=== PATIENT | female | born 1995 | race African-American/Black ===

== ENCOUNTER 2019-07-26 05:54 | Emergency (ER) | payer SELFPAY ==
[2019-07-26 06:46] LABS: Hemoglobin 10.4 g/dL (12.0-16.0); Mean Corpuscular HGB CONC 32.1 g/dL (32.0-36.0); Mean Corpuscular Hemoglobin 22.1 pg (27.0-31.0); Mean Corpuscular Volume 68.8 fL (78.0-98.0); Mean Platelet Volume 10.3 fL (7.4-10.4); Platelet Count 202 thou/uL (130-400); RBC Distribution Width 14.8 % (11.5-14.5); Red Blood Cell (RBC) Count 4.71 mill/uL (4.20-5.40); White Blood Cell (WBC) Count 9.2 thou/uL (4.8-10.8)
[2019-07-26] MEDS ORDERED: Acetaminophen 500 MG TAB ONE (06:46)
[2019-07-26] MEDS ORDERED: Ondansetron ODT 4 MG TAB ONE (06:46)
[2019-07-26 06:55] LABS: Bilirubin Negative (Negative); Blood, Urine Negative (Negative); Clarity Clear (Clear); Glucose, Urine (Dipstick) Normal (Negative); Leukocyte Negative Leu/uL (Negative); Nitrite Negative (Negative); Protein, Urine (Dipstick) Negative (Neg-Trace); Urobilinogen Normal mg/dL (Less than 2)
[2019-07-26 07:20] LABS: #Basophils 0.1 thou/uL (0.0-0.2); #Eosinphils 0.1 thou/uL (0.0-0.7); #Lymphocytes 2.5 thou/uL (1.20-3.40); #Monocytes 0.6 thou/uL (0.11-0.59); #Neutrophils 5.9 thou/uL (1.40-6.50); %Basophils 1.2 % (0.0-1.0); %Eosinophils 1.3 % (0.0-10.0); %Lymphocytes 26.7 % (21.0-51.0); %Monocytes 6.9 % (0.0-10.0); %Neutrophils 63.9 % (42.0-75.0); Anisocytosis SLIGHT = 6-15 cells (100X) (0-5/hpf); MDiff Complete? YES; Microcytosis SLIGHT = 6-15 cells (100X) (0-5/hpf); Ovalocytes SLIGHT = 2-5 cells (100X) (0-1/hpf); Poikilocytosis SLIGHT = 6-15 cells (100X) (0-5/hpf)
--- NOTE | 2019-07-26 09:03 | ULT ---
PELVIC ULTRASOUND: COMPARISON: None. HISTORY: Pelvic pain in a female. TECHNIQUE: Multiplanar, whitehead scale, and color Doppler images were obtained in a transabdominal and transvaginal pelvic ultrasound. Spectral analysis with Doppler waveforms was performed. FINDINGS: Within the uterus, there is a hypoechoic region within the endometrium measuring approximately 2.1 x 2.6 cm in size. There are internal areas of increased echogenicity. This does not have the appearan ce of a normal gestational sac and is indeterminate. The echogenic structures do not have the appear ance of normal parts. A small amount of free fluid is seen in the pelvis. The right ovary is normal in size and appearance and demonstrates normal internal flow. There is a mass-like region in the left ovary measuring 5.4 cm in greatest dimension. No obvious ectopic gestational sac is seen. IMPRESSION: 1. No evidence of intrauterine or ectopic gestational sac. 2. There is a complex region within the uterus. This could represent demise with partial reso rption of the gestational sac and fetus. Alternatively, this could represent an atypical tumor. Giv en the extremely high HCG level, a choriocarcinoma could not be entirely excluded, although the appea kenzie of this on ultrasound would be atypical for choriocarcinoma. 3. Mass-like region in the left ovary. This could represent a hemorrhagic cyst or a mass in the lef t ovary. POS: CET
[2019-07-26] MEDS ORDERED: Ketorolac Tromethamine 30 MG/ML VIAL ONE (09:24)
[2019-07-26] MEDS ORDERED: traMADol HCl 50 MG TAB ONE (10:46)
--- NOTE | 2019-07-27 09:14 | CON ---
DATE OF CONSULTATION: 07/26/2019 CHIEF COMPLAINT: Cramping suprapubic pain. HISTORY OF PRESENT ILLNESS: The patient is a 24-year-old G3, P1 female, presenting with onset of suprapubic pain that began this morning after her shift. 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 She denies any vaginal bleeding. She reports that her pain is severe and rates it a 10/10 and it is suprapubic in nature. The patient reports that she was diagnosed with about 2 weeks ago and confirmed at [facility] [place]. Her evaluation in the ER included an ultrasound report and quantitative hCG at 2584. Ultrasound demonstrating no clear intrauterine , but what may appear to be a partial resorption of the gestational sac in fundus, which could represent a demise. Urine showed no evidence of urinary tract infection, and white count was normal. Upon my evaluation with the patient, patient confirmed the reported history. She does report that this was a surprise that she lives alone with her child and works at nights and also confirmed that she has an appointment tomorrow with her primary OB, Dr. Rivera at [facility] [place], who delivered her first child. PAST MEDICAL HISTORY: Negative. PAST SURGICAL HISTORY: Cholecystectomy. SOCIAL HISTORY: Drinks very rarely. Denies drug or tobacco use. ALLERGIES: NO KNOWN DRUG ALLERGIES. MEDICATIONS: None. PHYSICAL EXAMINATION: VITAL SIGNS: Blood pressure 112/70, pulse of 80, respiratory rate of 18, and temperature 98.2. Pain reported at 8/10 and O2 sats of 99%. GENERAL: She appears to be in no acute distress. She is alert, oriented, cooperative, and pleasant to interact with. She reports or exhibits some pain when she is moving. HEENT: Head is normocephalic and atraumatic. LUNGS: Clear to auscultation bilaterally. HEART: Has a regular rate and rhythm. ABDOMEN: Gravid. She has some mild tenderness to palpation throughout her abdomen. : She has more pointed tenderness suprapubically in midline, not really present in her lower adnexal regions. Vulva is without masses, lesions, or erythema. Vagina is moist. Cervix was identified and visibly closed with no blood or products of conception visible. EXTREMITIES: Nontender and nonedematous. IMAGING DATA: Again, ultrasound demonstrating a hypoechoic region within the endometrium of 2.1 x 2.6 cm in size. Did not have the appearance of a normal gestational sac, however, in impression may be evidence of a recent demise with partial resorption. Also present on ultrasound is a 5.4 cm mass in the left ovary. ASSESSMENT AND PLAN: The patient is a 24-year-old G3, P1 female with a likely abnormal , which may represent a recent demise. However, the patient has no clear evidence of this as her quants were 2500 with only a single value. We did discuss that this likely is not a normal and likely may end in miscarriage. However, given the fact that the confirmation of our suspicions would best be confirmed with serial hCG in 2 days, we are recommending discharge home with followup with her primary OB tomorrow, Dr. Rivera, who can make further management decisions. The patient, however, did not appear to be in significant pain, reported such. Ultram was given to the patient, #10 to take as needed for pain control at home as this may be evidence of a threatened miscarriage. I do not believe that the patient has an ectopic as the patient had [id number] tenderness in the adnexa, but all present suprapubically. The patient has no evidence of urinary tract infection. The patient has been given spontaneous miscarriage precautions and counseled should she start experiencing significant heavy bleeding or that her pain medication is not sufficiently covering her pain, during that time that she can re-present either with us or at [facility], where her primary OB would be more likely to be able to attend to her. The patient did confirm that she has someone coming to pick her up. The patient was counseled not to drive while taking the narcotics that she is being provided. Job ID: [id number]
== END 2019-07-26 11:51 | disposition home or self-care (01) ==
LOC: ERS 05:54
DX: O20.0 Threatened abortion (principal); O26.891 Other specified pregnancy related conditions, first trimester; R10.30 Lower abdominal pain, unspecified; Z3A.01 Less than 8 weeks gestation of pregnancy
CPT/HCPCS: 36415; 76856; 81003; 84702; 85025; 96374; J1885; Q0162

== ENCOUNTER 2019-07-30 12:57 | Emergency (ER) | payer SELFPAY ==
[2019-07-30 14:17] LABS: #Basophils 0.1 thou/uL (0.0-0.2); #Eosinphils 0.1 thou/uL (0.0-0.7); #Lymphocytes 1.5 thou/uL (1.20-3.40); #Monocytes 0.7 thou/uL (0.11-0.59); #Neutrophils 4.2 thou/uL (1.40-6.50); %Basophils 1.2 % (0.0-1.0); %Eosinophils 1.6 % (0.0-10.0); %Lymphocytes 22.1 % (21.0-51.0); %Monocytes 10.3 % (0.0-10.0); %Neutrophils 64.8 % (42.0-75.0); Hemoglobin 7.9 g/dL (12.0-16.0); Mean Corpuscular HGB CONC 34.5 g/dL (32.0-36.0); Mean Corpuscular Hemoglobin 23.6 pg (27.0-31.0); Mean Corpuscular Volume 68.4 fL (78.0-98.0); Mean Platelet Volume 10.2 fL (7.4-10.4); Platelet Count 244 thou/uL (130-400); RBC Distribution Width 14.6 % (11.5-14.5); Red Blood Cell (RBC) Count 3.33 mill/uL (4.20-5.40); White Blood Cell (WBC) Count 6.5 thou/uL (4.8-10.8)
[2019-07-30 14:38] LABS: Anion Gap 13 mmol/L (10-20); BUN (Urea Nitrogen) 6 mg/dL (7.0-18.7); Calc. Creatinine Clearance 0 mL/min (70-130); Calcium 9.1 mg/dL (7.8-10.44); Carbon Dioxide 24 mmol/L (22-29); Chloride 102 mmol/L (98-107); Estimated GFR-MDRD Greater than 90; Glucose 80 mg/dL (70-105); Potassium 3.1 mmol/L (3.5-5.1); Sodium 136 mmol/L (136-145)
--- NOTE | 2019-07-30 15:00 | ULT ---
EXAM: Pelvic ultrasound HISTORY: Vaginal bleeding with COMPARISON: None TECHNIQUE: Multiple grayscale and color Doppler images were obtained in a transabdominal and transvag inal pelvic ultrasound. Spectral analysis of the Doppler waveforms of the ovaries were performed. FINDINGS: CERVIX: No evidence of nabothian cysts. UTERUS: No intrauterine is seen. There is a focal area of heterogeneous thickening of the e ndometrium near the fundus. This could represent retained products of conception. A small amount of free fluid is seen in the pelvis. RIGHT OVARY: Normal flow without focal mass. LEFT OVARY: Normal flow without focal mass. The left ovary appears enlarged compared to the right. IMPRESSION: 1. No intrauterine or ectopic identified 2. Area of thickening within the endometrial stripe near the fundus could represent retained products of conception or blood within the endometrial canal. 3. Large left ovary.
[2019-07-30] MEDS ORDERED: Misoprostol 200 MCG TAB VAG SCH (18:15)
--- NOTE | 2019-07-30 22:42 | CON ---
DATE OF CONSULTATION: 07/30/2019 CHIEF COMPLAINT: Vaginal bleeding. HISTORY OF PRESENT ILLNESS: The patient is a 24-year-old, G2, P1 female with several days history of vaginal bleeding that she reports has been as frequently as changing a blue hernando pad every 2 hours with a saturated spot 6-8 inches in diameter. She was seen here in the emergency room on 07/26/2019 with pelvic pain, was diagnosed with likely abnormal and threatened . She followed up with her primary OB the following days for further evaluation, but has returned today. The patient in her evaluation was noted to have a drop in her hemoglobin from 10.4 to 7.9, a rise in her quant HCG from 2500 to 7500 and ultrasound findings consistent with what was thought to be retained products of conception in the fundus. The patient reports fatigue and extreme tiredness, has been in bed for most the last several days. She reports that last night, she had increased cramping until she felt like some tissue had passed, after which cramping had improved and her bleeding had improved for some time, but then again began to be increased. This morning, she came for evaluation. She reports that since arrival over the last several hours, she has not had to change her pad. She does report fatigue and tiredness. She reports abdominal pain, but this has improved since our last encounter. Denies chest pain or shortness of breath. Denies fever. PAST MEDICAL HISTORY: Negative. PAST SURGICAL HISTORY: She has had a cholecystectomy. PSYCHIATRIC HISTORY: Depression. SOCIAL HISTORY: Denies drugs or tobacco use and drinks alcohol on rare occasion. ALLERGIES: NO KNOWN DRUG ALLERGIES. MEDICATIONS: Prescribed a few Ultram for cramping in her last ER presentation. PHYSICAL EXAMINATION: VITAL SIGNS: Blood pressure 128/74, pulse of 84, respiratory rate of 16, temperature 98.2, saturating 100% on room air. GENERAL: She appears to be in no acute distress. She is alert, oriented, cooperative, and pleasant to interact with. HEAD: Normocephalic, atraumatic. LUNGS: Clear to auscultation bilaterally. HEART: Has regular rate and rhythm. ABDOMEN: Gravid and soft. She has some mild tenderness to palpation, but again much improved from her previous visit. : Vulva is without masses, lesions, or erythema. She has no bleeding visible on the check beneath her. She has lightly stained perineum with some bleeding on speculum exam. She has no blood collecting in the vaginal vault and no active bleeding from the cervical os. On bimanual exam, uterus feels to be just slightly enlarged, but is firm and again bimanual exam and pressure on the uterus does not express any bleeding from the uterus itself or stimulate any bleeding. IMAGING DATA: Pelvic ultrasound done earlier today. A focus of area of thickening of the endometrium near the fundus that could represent retained products of conception. LABORATORY STUDIES: Current CBC; white count of 6.5, hemoglobin 7.9, hematocrit 22.7, and platelets of 244,000. Blood type is A positive with a negative antibody screen. Sodium 136, potassium 3.1, chloride 102, creatinine 0.63, beta quant 7253. ASSESSMENT AND PLAN: The patient is a 24-year-old female, who likely has a completed spontaneously. Her bleeding has much improved. She does have acute blood loss anemia and is symptomatic and is receiving 1 unit of packed red blood cells. The patient will be given 800 mcg of Cytotec vaginally in an effort to expel what may be in the fundus of the uterus. The patient is without any symptoms and had required no pad changes over the last several hours, which makes me believe that she has completed her miscarriage and does not need a D and C at this time. The patient is being informed of these findings and reasoning and the patient is being discharged to home. She can follow up with Dr. Rivera, her primary OB to ensure that her quant HCG blood counts dropped appropriately and that she begin cycling again on her own. Job ID: [id number]
== END 2019-07-30 18:39 | disposition home or self-care (01) ==
LOC: ERS 12:57
DX: O03.4 Incomplete spontaneous abortion without complication (principal); N94.6 Dysmenorrhea, unspecified; F32.9 Major depressive disorder, single episode, unspecified
CPT/HCPCS: 36415; 36430; 76856; 80048; 84702; 85025; 86850; 86900; 86901; P9016

== ENCOUNTER 2022-08-07 21:41 | Emergency (ER) | payer OTHER, SELFPAY | END 2022-08-08 00:30 | disposition home or self-care (01) | LOC: ERS 21:41 | DX: M54.2 Cervicalgia (principal); J34.89 Other specified disorders of nose and nasal sinuses; M79.651 Pain in right thigh; V89.2XXA Person injured in unspecified motor-vehicle accident, traffic, initial encounter | CPT/HCPCS: 70450; 72125 ==